=== PATIENT | female | born 1995 | race Hispanic/Latino ===

== ENCOUNTER 2018-08-18 11:42 | Emergency (ER) | payer OTHER ==
[2018-08-18 12:27] LABS: APPEARANCE,URINE SL CLOUDY (CLEAR); BILIRUBIN,URINE SMALL (NEGATIVE); COLOR,URINE YELLOW (YELLOW); GLUCOSE, URINE (UA) NEGATIVE (NEGATIVE); KETONES,URINE >=80 mg/dL (NEGATIVE); LEUKOCYTE ESTERASE ,URINE NEGATIVE (NEGATIVE); NITRATE,URINE NEGATIVE (NEGATIVE); OCCULT BLOOD,URINE NEGATIVE (NEGATIVE); PROTEIN,URINE NEGATIVE (NEGATIVE)
[2018-08-18 12:29] LABS: HCG,QUAL RESULT NEGATIVE (NEGATIVE)
[2018-08-18 12:41] LABS: BACTERIA,URINE Few /HPF (None Seen); MUCUS,URINE Few LPF (None Seen); RBC,URINE None Seen /HPF (0-1); SQUAMOUS EPITHELIAL CELL,UR Moderate /HPF (0-2)
[2018-08-18] MEDS ORDERED: ONDANSETRON ODT 4 MG TAB ONE (12:44)
== END 2018-08-18 13:26 | disposition home or self-care (01) ==
LOC: EDH 11:42
DX: R11.2 Nausea with vomiting, unspecified (principal); Z91.013 Allergy to seafood; I10 Essential (primary) hypertension
CPT/HCPCS: 81001; 81025